=== PATIENT | male | born 1995 | race Hispanic/Latino ===

== ENCOUNTER 2023-08-30 11:15 | Inpatient (IN) | payer OTHER ==
[~2023-08-30 11:15] MED LIST: Lorazepam 1 MG TAB PO PRN
[2023-08-30 12:40] LABS: #Neutrophils 13.8 thou/uL (1.40-6.50); %Basophils 0.1 % (0.0-1.0); %Lymphocytes 1.7 % (21.0-51.0); %Monocytes 17.3 % (0.0-10.0); %Neutrophils 80.2 % (42.0-75.0); Hematocrit 36.2 % (42.0-52.0); Hemoglobin 13.2 g/dL (14.0-18.0); Mean Corpuscular HGB CONC 36.5 g/dL (32.0-36.0); Mean Corpuscular Hemoglobin 33.5 pg (27.0-31.0); Mean Corpuscular Volume 91.9 fl (78.0-98.0); Mean Platelet Volume 10.3 fL (7.4-10.4); Platelet Count 180 10x3/uL (130-400); RBC Distribution Width 12.6 % (11.5-14.5); Red Blood Cell (RBC) Count 3.94 mill/uL (4.70-6.10); White Blood Cell (WBC) Count 17.2 10x3/uL (4.8-10.8)
[2023-08-30 13:04] LABS: Bilirubin, Total 0.9 mg/dL (0.2-1.2); Globulin 4.3 g/dL (2.4-3.5); Potassium 3.2 mmol/L (3.5-5.1); Protein, Total 8.3 g/dL (6.0-8.3)
[2023-08-30 13:05] LABS: Acetaminophen Less than 10 mcg/mL (10.0-30.0); Alcohol Less than 10.0 mg/dL (Less than 10); Lipase 141 U/L (8-78); Salicylate Less than 8.0 mg/dL (15.0-30.0)
[2023-08-30 13:14] LABS: Calcium 6.1 mg/dL (7.8-10.44)
[2023-08-30 13:19] LABS: CK (CPK) 5105 U/L (30-200)
[2023-08-30] MEDS ORDERED: CALCIUM GLUC 1 GM (50 ML) BAG ONE (13:19)
[2023-08-30 13:35] LABS: Troponin I 0.012 ng/mL (< 0.028)
[2023-08-30 14:14] LABS: Base Excess -10.2 mEq/L (-2.0 to +3.0); Chloride (VBG) 95 mmol/L (98-106); Hematocrit-VBG 40 % (42.0-52.0); Hemoglobin (Hb) 13.6 g/dL (13.2-17.3); Potassium (VBG) 3.06 mmol/L (3.70-5.30); Sodium 134 mmol/L (133-146); pH (venous) 7.322 (7.32-7.43)
[2023-08-30 14:20] LABS: Actual Bicarbonate (HCO3v) 14.3 mEq/L (22-28); Calcium, Ionized (venous) 0.75 mmol/L (1.16-1.32)
[2023-08-30 14:38] LABS: Phosphorus 8.9 mg/dL (2.3-4.7)
[2023-08-30] MEDS ORDERED: Sodium Chloride 0.9% 100 ML ONE (14:52)
[2023-08-30] MEDS ORDERED: Cefepime 2 GM VIAL ONE (14:52)
[2023-08-30] MEDS ORDERED: Ondansetron PF 4 MG/2 ML Vial IVP PRN (14:54)
[2023-08-30] MEDS ORDERED: Vancomycin 1 GM in Premix 1 BAG IVPB SCH (15:00)
[2023-08-30] MEDS ORDERED: Vancomycin 1 GM/200 ML (FROZEN) BAG ONE (16:42)
[2023-08-30 17:13] LABS: Troponin I Less than 0.010 ng/mL (< 0.028)
[2023-08-30 17:28] LABS: Bacteria/HPF None Seen HPF (None Seen); Bilirubin Negative (Negative); Blood, Urine 2+ (Negative); CAUTI Indications for Culture Alt mental st,lethar; Clarity Clear (Clear); Glucose, Urine (Dipstick) Normal (Negative); Ketone, Urine 10 mg/dL (Negative); Leukocyte Negative Leu/uL (Negative); Nitrite Negative (Negative); Protein, Urine (Dipstick) 30 mg/dL (Neg-Trace); RBC/HPF 0-3 HPF (0-3); Specific Gravity, Urine 1.013 (1.002-1.036); Squamous Epithelial None Seen HPF (0-3); Urobilinogen Normal mg/dL (Less than 2); WBC/HPF 0-3 HPF (0-3); pH, Urine 5.5 (5.0-9.0)
[2023-08-30 17:31] LABS: Urine Culture Reflex No No
[2023-08-30 17:35] LABS: Amphetamine Not Detected (NotDetected); Barbiturates Screen Not Detected (NotDetected); Benzodiazepine Screen Not Detected (NotDetected); Cocaine Metabolite Screen Not Detected (NotDetected); Methadone Not Detected (NotDetected); Methamphetamine Not Detected (NotDetected); Opiate Screen Not Detected (NotDetected); Oxycodone Screen Not Detected (NotDetected); Phencyclidine (PCP) Not Detected (NotDetected); THC/Cannabinoid Screen Not Detected (NotDetected); Tricyclic Screen Not Detected (NotDetected)
[2023-08-30 18:03] LABS: SARS-CoV-2 NAA Rapid Test Not Detected (NotDetected)
[2023-08-30] MEDS: Sodium Bicarbonate 150 MEQ in Dextrose 5% in Water 1,000 ML IV SCH (19:36)
[2023-08-30] MEDS ORDERED: Vancomycin 1 GM in Sodium Chloride 0.9% 250 ML 250 ML IVPB SCH (21:00)
[2023-08-30] MEDS ORDERED: Vancomycin Dose by Levels Sliding Scale (Wt <71) FS SCH (21:45)
[2023-08-30] MEDS: cefTRIAXone\\ROCEPHIN 2 GM in Sodium Chloride 0.9% 100 ML IVPB SCH (21:51)
[2023-08-30] MEDS: Heparin 5,000 UNITS/ML VIAL SC SCH (21:59)
[2023-08-30] MEDS ORDERED: Vancomycin HCl 500 MG in Sodium Chloride 0.9% 100 ML IVPB SCH (22:00)
[2023-08-30] MEDS ORDERED: Lorazepam 2 MG/ML VIAL IM PRN (22:45)
[2023-08-30] MEDS ORDERED: Ondansetron ODT 4 MG TAB PO PRN (22:45)
[2023-08-30] MEDS ORDERED: Electrolyte Replacement Protocol 1 EACH FS PRN (22:45)
[2023-08-30] MEDS: Thiamine HCl 200 MG/2 ML VIAL SLOW IVP SCH (22:49)
[2023-08-30] MEDS: Lorazepam 1 MG TAB PO SCH ×3 (22:57→22:58)
[2023-08-30 23:22] LABS: Troponin I Less than 0.010 ng/mL (< 0.028)
[2023-08-31] MEDS ORDERED: Lorazepam 2 MG/ML VIAL IM PRN (01:45)
[2023-08-31] MEDS ORDERED: Dexmedetomidine In 0.9 % NaCl 100 ML IVPB SCH (02:00)
[2023-08-31] MEDS: QUEtiapine 25 MG TAB PO SCH ×4 (02:16→20:33)
[2023-08-31] MEDS: Sodium Bicarbonate 150 MEQ in Dextrose 5% in Water 1,000 ML IV SCH (02:16)
[2023-08-31] MEDS: Lorazepam 1 MG TAB PO PRN ×2 (02:17→02:29)
[2023-08-31] MEDS ORDERED: Lorazepam 2 MG/ML VIAL SLOW IVP PRN ×2 (02:29)
[2023-08-31] MEDS: Lorazepam 2 MG/ML VIAL SLOW IVP SCH ×3 (05:03→17:25)
[2023-08-31 05:10] LABS: Hematocrit 30.9 % (42.0-52.0); Hemoglobin 11.2 g/dL (14.0-18.0); Manual Diff?? YES; Mean Corpuscular HGB CONC 36.2 g/dL (32.0-36.0); Mean Corpuscular Volume 91.2 fl (78.0-98.0); Mean Platelet Volume 9.9 fL (7.4-10.4); Platelet Count 159 10x3/uL (130-400); RBC Distribution Width 12.7 % (11.5-14.5); Red Blood Cell (RBC) Count 3.39 mill/uL (4.70-6.10); White Blood Cell (WBC) Count 10.3 10x3/uL (4.8-10.8)
[2023-08-31 05:18] LABS: Delete Auto Diff?? YES
[2023-08-31 05:53] LABS: Band 4 % (5-11); Lymphocytes 1 % (21-51); Monocytes 17 % (0-10); Neutrophil 78 % (42-75); Platelet Adequacy Comment Platelets Normal
[2023-08-31 05:55] LABS: Polychromasia SLIGHT = 2-3 cells (100X) (0-2/hpf); Stomatocytes SLIGHT = 2-5 cells (100X) (0-1/hpf)
[2023-08-31] MEDS ORDERED: Lorazepam 1 MG TAB PO SCH ×3 (06:00→23:59)
[2023-08-31 07:37] LABS: Albumin 3.5 g/dL (3.5-5.0)
[2023-08-31 07:38] LABS: Chloride 99 mmol/L (98-107); Sodium 142 mmol/L (136-145)
[2023-08-31 07:40] LABS: Globulin 3.6 g/dL (2.4-3.5); Glucose 175 mg/dL (70-105); Protein, Total 7.1 g/dL (6.0-8.3)
[2023-08-31 07:41] LABS: Anion Gap 16 mmol/L (10-20); Carbon Dioxide 29 mmol/L (22-29)
[2023-08-31 07:42] LABS: Bilirubin, Total 1.3 mg/dL (0.2-1.2)
[2023-08-31 07:43] LABS: Alkaline Phosphatase 75 U/L (40-110)
[2023-08-31 07:44] LABS: BUN (Urea Nitrogen) 56 mg/dL (8.9-20.6)
[2023-08-31 07:45] LABS: AST (SGOT) 55 U/L (5-34)
[2023-08-31 07:46] LABS: ALT (SGPT) 43 U/L (8-55)
[2023-08-31 08:29] LABS: Calc. Creatinine Clearance 70 mL/min (70-130); Calcium 7.4 mg/dL (7.8-10.44); Critical Call Chemistry NUR.ERG@0827; Estimated GFR 81; Potassium 2.3 mmol/L (3.5-5.1)
[2023-08-31] MEDS: Heparin 5,000 UNITS/ML VIAL SC SCH ×2 (08:32→20:48)
[2023-08-31] MEDS: Folic Acid 1 MG TAB PO SCH (08:32)
[2023-08-31] MEDS: Dexmedetomidine 400 MCG, Admixture Fee 1 EACH in Sodium Chloride 0.9% 96 ML IVPB SCH ×2 (08:32→17:25)
[2023-08-31] MEDS: Multivit, Therapeutic 1 TAB PO SCH (08:33)
[2023-08-31] MEDS: Potassium Chloride 20 MEQ in Premix 1 BAG IVPB SCH ×6 (08:48→22:40)
[2023-08-31 11:07] LABS: Syphilis Antibody Nonreactive (Nonreactive); Syphilis Antibody Index 0.04 S/CO (<1.00 Non-Reactive)
[2023-08-31 18:37] LABS: Vancomycin, Random 5.1 ug/mL (See Comment)
[2023-08-31 19:02] LABS: Critical Call Chemistry NUR.BMD1 @1901; Potassium 2.6 mmol/L (3.5-5.1)
[2023-08-31] MEDS: Vancomycin 1 GM in Premix 1 BAG IVPB SCH (20:24)
[2023-08-31] MEDS: Potassium Chloride 20 MEQ in Lactated Ringer's 1,000 ML IV SCH (20:42)
[2023-08-31] MEDS: cefTRIAXone\\ROCEPHIN 2 GM in Sodium Chloride 0.9% 100 ML IVPB SCH (20:48)
[2023-08-31] MEDS ORDERED: Lorazepam 1 MG TAB PO PRN (22:45)
[2023-08-31] MEDS ORDERED: Lorazepam 2 MG/ML VIAL SLOW IVP SCH (23:59)
[2023-09-01] MEDS ORDERED: Lorazepam 2 MG/ML VIAL SLOW IVP PRN (00:01)
[2023-09-01] MEDS ORDERED: Lorazepam 1 MG TAB PO PRN ×3 (00:01→22:45)
[2023-09-01] MEDS: Thiamine HCl 200 MG/2 ML VIAL SLOW IVP SCH ×2 (00:11→21:52)
[2023-09-01] MEDS: Potassium Chloride 20 MEQ in Premix 1 BAG IVPB SCH ×4 (00:12→21:52)
[2023-09-01] MEDS: Lorazepam 2 MG/ML VIAL SLOW IVP SCH (00:13)
[2023-09-01] MEDS: Lorazepam 1 MG TAB PO SCH ×4 (05:42→23:23)
[2023-09-01] MEDS ORDERED: Lorazepam 0.5 MG TAB PO SCH ×2 (06:00→23:59)
[2023-09-01] MEDS: Multivit, Therapeutic 1 TAB PO SCH (08:37)
[2023-09-01] MEDS: Vancomycin 1 GM in Premix 1 BAG IVPB SCH ×2 (08:37→19:30)
[2023-09-01] MEDS: Heparin 5,000 UNITS/ML VIAL SC SCH ×2 (08:37→19:31)
[2023-09-01] MEDS: Folic Acid 1 MG TAB PO SCH (08:37)
[2023-09-01] MEDS: Potassium Chloride 20 MEQ in Lactated Ringer's 1,000 ML IV SCH (09:09)
[2023-09-01 09:14] LABS: Delete Auto Diff?? YES; Hematocrit 37.4 % (42.0-52.0); Hemoglobin 12.9 g/dL (14.0-18.0); Manual Diff?? YES; Mean Corpuscular HGB CONC 34.5 g/dL (32.0-36.0); Mean Corpuscular Hemoglobin 33.5 pg (27.0-31.0); Mean Corpuscular Volume 97.1 fl (78.0-98.0); Mean Platelet Volume 9.7 fL (7.4-10.4); Platelet Count 196 10x3/uL (130-400); RBC Distribution Width 13.4 % (11.5-14.5); Red Blood Cell (RBC) Count 3.85 mill/uL (4.70-6.10); White Blood Cell (WBC) Count 8.9 10x3/uL (4.8-10.8)
[2023-09-01 09:37] LABS: ALT (SGPT) 43 U/L (8-55); AST (SGOT) 65 U/L (5-34); Albumin 3.5 g/dL (3.5-5.0); Alkaline Phosphatase 89 U/L (40-110); Anion Gap 13 mmol/L (10-20); BUN (Urea Nitrogen) 14 mg/dL (8.9-20.6); CK (CPK) 295 U/L (30-200); Calc. Creatinine Clearance 116 mL/min (70-130); Calcium 8.4 mg/dL (7.8-10.44); Carbon Dioxide 29 mmol/L (22-29); Chloride 104 mmol/L (98-107); Estimated GFR 127; Globulin 3.6 g/dL (2.4-3.5); Glucose 193 mg/dL (70-105); Potassium 3.1 mmol/L (3.5-5.1); Protein, Total 7.1 g/dL (6.0-8.3); Sodium 143 mmol/L (136-145)
[2023-09-01 10:11] LABS: Band 9 % (5-11); Lymphocytes 18 % (21-51); Monocytes 18 % (0-10); Neutrophil 48 % (42-75); Polychromasia SLIGHT = 2-3 cells (100X) (0-2/hpf); Reactive Lymphocytes 7 % (0-10)
[2023-09-01 13:32] VITALS: BP 115/80
[2023-09-01] MEDS: QUEtiapine 25 MG TAB PO SCH (19:30)
[2023-09-01] MEDS: cefTRIAXone\\ROCEPHIN 2 GM in Sodium Chloride 0.9% 100 ML IVPB SCH (19:31)
[2023-09-01] MEDS: Acetaminophen 325 MG TAB PO PRN (21:45)
[2023-09-01] MEDS: Lorazepam 0.5 MG TAB PO SCH (23:23)
[2023-09-01] MEDS ORDERED: Lorazepam 2 MG/ML VIAL SLOW IVP SCH (23:59)
[2023-09-02] MEDS ORDERED: Lorazepam 2 MG/ML VIAL SLOW IVP PRN (00:01)
[2023-09-02] MEDS ORDERED: Lorazepam 1 MG TAB PO PRN ×2 (00:01)
[2023-09-02] MEDS: Potassium Chloride 20 MEQ in Premix 1 BAG IVPB SCH (00:16)
[2023-09-02 00:56] LABS: Campy jejuni + coli by PCR Negative (Negative); STEC Shiga Toxin 1+2 Negative (Negative); Salmonella spp. by PCR Negative (Negative); Shigella spp + EIEC by PCR Negative (Negative)
[2023-09-02 03:24] LABS: Hematocrit 35.1 % (42.0-52.0); Hemoglobin 11.8 g/dL (14.0-18.0); Manual Diff?? YES; Mean Corpuscular HGB CONC 33.6 g/dL (32.0-36.0); Mean Corpuscular Hemoglobin 33.1 pg (27.0-31.0); Mean Corpuscular Volume 98.6 fl (78.0-98.0); Mean Platelet Volume 9.4 fL (7.4-10.4); Platelet Count 252 10x3/uL (130-400); RBC Distribution Width 13.1 % (11.5-14.5); Red Blood Cell (RBC) Count 3.56 mill/uL (4.70-6.10); White Blood Cell (WBC) Count 12.2 10x3/uL (4.8-10.8)
[2023-09-02 03:51] LABS: ALT (SGPT) 42 U/L (8-55); AST (SGOT) 47 U/L (5-34); Alkaline Phosphatase 91 U/L (40-110); Anion Gap 12 mmol/L (10-20); BUN (Urea Nitrogen) 8 mg/dL (8.9-20.6); CK (CPK) 88 U/L (30-200); Calc. Creatinine Clearance 128 mL/min (70-130); Calcium 8.2 mg/dL (7.8-10.44); Carbon Dioxide 27 mmol/L (22-29); Chloride 105 mmol/L (98-107); Estimated GFR 130; Globulin 3.4 g/dL (2.4-3.5); Glucose 118 mg/dL (70-105); Potassium 3.4 mmol/L (3.5-5.1); Protein, Total 6.4 g/dL (6.0-8.3); Sodium 141 mmol/L (136-145)
[2023-09-02 03:55] LABS: Delete Auto Diff?? YES
[2023-09-02 04:50] LABS: Band 21 % (5-11); Eosinophils 3 % (0-10); Lymphocytes 15 % (21-51); Metamyelocyte 1 % (0-0); Monocytes 23 % (0-10); Neutrophil 37 % (42-75)
[2023-09-02] MEDS: Lorazepam 0.5 MG TAB PO SCH ×3 (05:56→18:25)
[2023-09-02] MEDS ORDERED: Lorazepam 0.5 MG TAB PO PRN (06:00)
[2023-09-02] MEDS ORDERED: Potassium Chloride 20 MEQ TAB PO SCH (08:00)
[2023-09-02] MEDS ORDERED: Loperamide HCl 2 MG CAP PO SCH (08:30)
[2023-09-02] MEDS ORDERED: Loperamide HCl 2 MG CAP PO PRN (08:30)
[2023-09-02] MEDS: Folic Acid 1 MG TAB PO SCH (08:42)
[2023-09-02] MEDS: Thiamine 100 MG TAB PO SCH (08:42)
[2023-09-02] MEDS: Heparin 5,000 UNITS/ML VIAL SC SCH ×2 (08:42→20:37)
[2023-09-02] MEDS: Vancomycin 1 GM in Premix 1 BAG IVPB SCH (08:42)
[2023-09-02] MEDS: Multivit, Therapeutic 1 TAB PO SCH (08:42)
[2023-09-02] MEDS ORDERED: Vancomycin 1 GM in Premix 1 BAG IVPB SCH (17:00)
[2023-09-02] MEDS: Vancomycin (BATCH) 1.25 GM in Premix 1 BAG IVPB SCH (17:36)
[2023-09-02] MEDS: cefTRIAXone\\ROCEPHIN 2 GM in Sodium Chloride 0.9% 100 ML IVPB SCH (20:07)
[2023-09-02] MEDS: QUEtiapine 25 MG TAB PO SCH (20:10)
[2023-09-02] MEDS: Acetaminophen 325 MG TAB PO PRN (20:11)
[2023-09-03] MEDS ORDERED: Lorazepam 2 MG/ML VIAL SLOW IVP PRN (00:01)
[2023-09-03] MEDS ORDERED: Lorazepam 0.5 MG TAB PO PRN ×2 (00:01)
[2023-09-03] MEDS: Lorazepam 0.5 MG TAB PO SCH (00:42)
[2023-09-03] MEDS: Vancomycin (BATCH) 1.25 GM in Premix 1 BAG IVPB SCH ×3 (02:00→17:08)
[2023-09-03 08:25] LABS: Hematocrit 34.2 % (42.0-52.0); Hemoglobin 11.8 g/dL (14.0-18.0); Manual Diff?? YES; Mean Corpuscular HGB CONC 34.5 g/dL (32.0-36.0); Mean Corpuscular Hemoglobin 33.6 pg (27.0-31.0); Mean Corpuscular Volume 97.4 fl (78.0-98.0); Mean Platelet Volume 9.2 fL (7.4-10.4); Platelet Count 340 10x3/uL (130-400); RBC Distribution Width 12.9 % (11.5-14.5); Red Blood Cell (RBC) Count 3.51 mill/uL (4.70-6.10); White Blood Cell (WBC) Count 16.2 10x3/uL (4.8-10.8)
[2023-09-03] MEDS: Folic Acid 1 MG TAB PO SCH (08:39)
[2023-09-03] MEDS: Thiamine 100 MG TAB PO SCH (08:39)
[2023-09-03] MEDS: Heparin 5,000 UNITS/ML VIAL SC SCH ×2 (08:39→20:22)
[2023-09-03] MEDS: Multivit, Therapeutic 1 TAB PO SCH (08:39)
[2023-09-03 08:50] LABS: Delete Auto Diff?? YES
[2023-09-03 10:58] LABS: Anisocytosis SLIGHT = 6-15 cells (100X) (0-5/hpf)
[2023-09-03 11:00] LABS: Band 4 % (5-11); Eosinophils 3 % (0-10); Lymphocytes 8 % (21-51); Metamyelocyte 1 % (0-0); Monocytes 11 % (0-10); Neutrophil 73 % (42-75); Platelet Adequacy Comment Appears Adequate
[2023-09-03 15:18] LABS: ALT (SGPT) 51 U/L (8-55); AST (SGOT) 57 U/L (5-34); Albumin 3.1 g/dL (3.5-5.0); Alkaline Phosphatase 116 U/L (40-110); Anion Gap 16 mmol/L (10-20); BUN (Urea Nitrogen) 6 mg/dL (8.9-20.6); Bilirubin, Total 0.9 mg/dL (0.2-1.2); Calc. Creatinine Clearance 160 mL/min (70-130); Calcium 7.8 mg/dL (7.8-10.44); Carbon Dioxide 23 mmol/L (22-29); Chloride 101 mmol/L (98-107); Estimated GFR 139; Globulin 3.4 g/dL (2.4-3.5); Glucose 98 mg/dL (70-105); Potassium 2.8 mmol/L (3.5-5.1); Protein, Total 6.5 g/dL (6.0-8.3); Sodium 137 mmol/L (136-145)
[2023-09-03] MEDS: Acetaminophen 325 MG TAB PO PRN (17:08)
[2023-09-03] MEDS: cefTRIAXone\\ROCEPHIN 2 GM in Sodium Chloride 0.9% 100 ML IVPB SCH (20:21)
[2023-09-03] MEDS: QUEtiapine 25 MG TAB PO SCH (20:22)
[2023-09-03] MEDS: Potassium Chloride 20 MEQ TAB PO SCH (21:52)
[2023-09-04] MEDS: Potassium Chloride 20 MEQ TAB PO SCH (01:07)
[2023-09-04 07:37] LABS: Hematocrit 34.4 % (42.0-52.0); Hemoglobin 11.8 g/dL (14.0-18.0); Manual Diff?? YES; Mean Corpuscular HGB CONC 34.3 g/dL (32.0-36.0); Mean Corpuscular Hemoglobin 33.7 pg (27.0-31.0); Mean Corpuscular Volume 98.3 fl (78.0-98.0); Mean Platelet Volume 9.3 fL (7.4-10.4); Platelet Count 417 10x3/uL (130-400); RBC Distribution Width 12.9 % (11.5-14.5); White Blood Cell (WBC) Count 18.2 10x3/uL (4.8-10.8)
[2023-09-04 08:13] LABS: Potassium 3.9 mmol/L (3.5-5.1)
[2023-09-04 08:14] LABS: Delete Auto Diff?? YES
[2023-09-04 08:17] LABS: ALT (SGPT) 54 U/L (8-55); AST (SGOT) 55 U/L (5-34); Albumin 3.2 g/dL (3.5-5.0); Alkaline Phosphatase 126 U/L (40-110); Anion Gap 14 mmol/L (10-20); BUN (Urea Nitrogen) 8 mg/dL (8.9-20.6); Bilirubin, Total 0.6 mg/dL (0.2-1.2); Calc. Creatinine Clearance 143 mL/min (70-130); Calcium 8.4 mg/dL (7.8-10.44); Carbon Dioxide 23 mmol/L (22-29); Chloride 106 mmol/L (98-107); Estimated GFR 135; Globulin 3.3 g/dL (2.4-3.5); Glucose 105 mg/dL (70-105); Potassium 3.9 mmol/L (3.5-5.1); Protein, Total 6.5 g/dL (6.0-8.3); Sodium 139 mmol/L (136-145)
[2023-09-04] MEDS: Folic Acid 1 MG TAB PO SCH (08:31)
[2023-09-04] MEDS: Heparin 5,000 UNITS/ML VIAL SC SCH ×2 (08:31→20:57)
[2023-09-04] MEDS: Thiamine 100 MG TAB PO SCH (08:31)
[2023-09-04] MEDS: Multivit, Therapeutic 1 TAB PO SCH (08:31)
[2023-09-04 09:26] LABS: Band 3 % (5-11); Eosinophils 1 % (0-10); Lymphocytes 13 % (21-51); Monocytes 7 % (0-10); Neutrophil 76 % (42-75)
[2023-09-04 09:27] LABS: Platelet Adequacy Comment Appears Increased
[2023-09-04] MEDS: cefTRIAXone\\ROCEPHIN 2 GM in Sodium Chloride 0.9% 100 ML IVPB SCH (20:56)
[2023-09-04] MEDS: QUEtiapine 25 MG TAB PO SCH (20:57)
[2023-09-05] MEDS: Multivit, Therapeutic 1 TAB PO SCH (08:39)
[2023-09-05] MEDS: Folic Acid 1 MG TAB PO SCH (08:39)
[2023-09-05] MEDS: Heparin 5,000 UNITS/ML VIAL SC SCH ×2 (08:40→22:28)
[2023-09-05] MEDS: Thiamine 100 MG TAB PO SCH (08:40)
[2023-09-05 11:14] LABS: Hematocrit 35.6 % (42.0-52.0); Hemoglobin 12.2 g/dL (14.0-18.0); Manual Diff?? YES; Mean Corpuscular HGB CONC 34.3 g/dL (32.0-36.0); Mean Corpuscular Hemoglobin 33.4 pg (27.0-31.0); Mean Corpuscular Volume 97.5 fl (78.0-98.0); Mean Platelet Volume 8.7 fL (7.4-10.4); Platelet Count 472 10x3/uL (130-400); RBC Distribution Width 12.5 % (11.5-14.5); Red Blood Cell (RBC) Count 3.65 mill/uL (4.70-6.10); White Blood Cell (WBC) Count 17.8 10x3/uL (4.8-10.8)
[2023-09-05 11:18] LABS: Delete Auto Diff?? YES
[2023-09-05 11:34] LABS: Anion Gap 11 mmol/L (10-20); BUN (Urea Nitrogen) 8 mg/dL (8.9-20.6); Calc. Creatinine Clearance 149 mL/min (70-130); Calcium 8.8 mg/dL (7.8-10.44); Carbon Dioxide 24 mmol/L (22-29); Chloride 105 mmol/L (98-107); Estimated GFR 136; Glucose 126 mg/dL (70-105); Sodium 136 mmol/L (136-145)
[2023-09-05 12:06] LABS: Band 1 % (5-11); Eosinophils 5 % (0-10); Lymphocytes 10 % (21-51); Metamyelocyte 1 % (0-0); Monocytes 8 % (0-10); Myelocyte 1 % (0-0); Neutrophil 72 % (42-75); Reactive Lymphocytes 2 % (0-10)
[2023-09-05 12:08] LABS: Platelet Adequacy Comment Platelets Increased
[2023-09-05] MEDS: QUEtiapine 25 MG TAB PO SCH (22:29)
[2023-09-05] MEDS: cefTRIAXone\\ROCEPHIN 2 GM in Sodium Chloride 0.9% 100 ML IVPB SCH (22:30)
[2023-09-06 05:01] VITALS: BMI 22.7
[2023-09-06] MEDS: Acetaminophen 325 MG TAB PO PRN (05:14)
[2023-09-06 08:17] VITALS: TEMP 98.3
[2023-09-06] MEDS: Heparin 5,000 UNITS/ML VIAL SC SCH (08:35)
[2023-09-06] MEDS: Thiamine 100 MG TAB PO SCH (08:35)
[2023-09-06] MEDS: Folic Acid 1 MG TAB PO SCH (08:35)
[2023-09-06] MEDS: Multivit, Therapeutic 1 TAB PO SCH (08:35)
[2023-09-06 09:08] LABS: Hematocrit 35.7 % (42.0-52.0); Hemoglobin 11.9 g/dL (14.0-18.0); Manual Diff?? YES; Mean Corpuscular HGB CONC 33.3 g/dL (32.0-36.0); Mean Corpuscular Hemoglobin 32.7 pg (27.0-31.0); Mean Corpuscular Volume 98.1 fl (78.0-98.0); Mean Platelet Volume 8.7 fL (7.4-10.4); Platelet Count 546 10x3/uL (130-400); RBC Distribution Width 12.4 % (11.5-14.5); Red Blood Cell (RBC) Count 3.64 mill/uL (4.70-6.10); White Blood Cell (WBC) Count 16.6 10x3/uL (4.8-10.8)
[2023-09-06 09:25] LABS: Delete Auto Diff?? YES
[2023-09-06 09:33] LABS: Anion Gap 13 mmol/L (10-20); BUN (Urea Nitrogen) 6 mg/dL (8.9-20.6); Calc. Creatinine Clearance 139 mL/min (70-130); Calcium 8.6 mg/dL (7.8-10.44); Carbon Dioxide 22 mmol/L (22-29); Chloride 102 mmol/L (98-107); Estimated GFR 137; Glucose 108 mg/dL (70-105); Potassium 3.9 mmol/L (3.5-5.1); Sodium 133 mmol/L (136-145)
[2023-09-06 10:17] LABS: Band 3 % (5-11); Eosinophils 7 % (0-10); Lymphocytes 3 % (21-51); Monocytes 7 % (0-10); Myelocyte 2 % (0-0); Neutrophil 68 % (42-75); Reactive Lymphocytes 10 % (0-10)
[2023-09-06 10:18] LABS: Polychromasia SLIGHT = 2-3 cells (100X) (0-2/hpf)
[2023-09-06 10:19] LABS: Platelet Adequacy Comment Platelets Increased
== END 2023-09-06 11:32 | disposition home or self-care (01) | DRG 71 ==
LOC: ERS 11:15 → EEVIPCON 11:15 → ERHOLD 14:55 → IMCU/EMU 21:16
PROVIDERS: ADMIT Internal Medicine; ATTEND Internal Medicine
PROC: 4A043R1 Measurement of Venous Saturation, Peripheral, Percutaneous Approach (ICD-10-PCS; principal; 2023-08-30)
PROC: 3E03329 Introduction of Other Anti-infective into Peripheral Vein, Percutaneous Approach (ICD-10-PCS; 2023-08-30)
DX: G93.41 Metabolic encephalopathy (principal); E87.1 Hypo-osmolality and hyponatremia; R78.81 Bacteremia; N17.9 Acute kidney failure, unspecified; E87.20 Acidosis, unspecified; E87.6 Hypokalemia; E83.51 Hypocalcemia; M06.9 Rheumatoid arthritis, unspecified; E83.39 Other disorders of phosphorus metabolism; F10.10 Alcohol abuse, uncomplicated; E83.41 Hypermagnesemia; N18.2 Chronic kidney disease, stage 2 (mild); R74.01 Elevation of levels of liver transaminase levels; B95.5 Unspecified streptococcus as the cause of diseases classified elsewhere; F20.9 Schizophrenia, unspecified; E88.09 Other disorders of plasma-protein metabolism, not elsewhere classified; Z11.52 Encounter for screening for COVID-19
CPT/HCPCS: 36415; 70450; 71045; 80048; 80053; 80202; 80306; 80307; 81001; 82010; 82140; 82550; 82805; 83605; 83690; 83735; 84100; 84443; 84484; 85025; 86780; 87040; 87077; 87086; 87149; 87186; 87324; 87449; 87505; 93005; 96365; 96367; J0613; J0692; J0696; J1644; J2060; J3370; J3370-JW; J3411; J3480; J3490; J7070; J7120